=== PATIENT | male | born 1975 | race Two or more races ===

== ENCOUNTER → 2021-06-21 06:23 | Outpatient (CLI) | payer OTHER | END | disposition home or self-care (01) | LOC: LAB 06:23 | PROVIDERS: ATTEND Internal Medicine | DX: Z03.818 Encounter for observation for suspected exposure to other biological agents ruled out (principal) ==

== ENCOUNTER 2021-11-01 07:21 | Outpatient (CLI) | payer OTHER | END 2021-11-01 10:50 | disposition home or self-care (01) | LOC: LAB 07:21 | PROVIDERS: ATTEND Emergency Medicine Pediatric Emergency Medicine | DX: Z03.818 Encounter for observation for suspected exposure to other biological agents ruled out (principal) ==

== ENCOUNTER 2021-11-11 09:04 | Outpatient (CLI) | payer OTHER | END 2021-11-11 09:16 | disposition home or self-care (01) | LOC: LAB 09:04 | DX: Z11.52 Encounter for screening for COVID-19 (principal); Z20.822 Contact with and (suspected) exposure to COVID-19 ==

== ENCOUNTER 2022-10-18 01:26 | Inpatient (IN) | payer OTHER ==
[~2022-10-18] VITALS: Ht 177.8 cm; Wt 81.6 kg
== END 2022-10-20 16:58 | disposition home or self-care (01) | DRG 343 ==
LOC: ER 01:26 → SURG 10:09 → SEC-K 10:09 → SURG 12:39
PROVIDERS: Specialist; ADMIT Internal Medicine; ATTEND Internal Medicine
PROC: BW20YZZ Computerized Tomography (CT Scan) of Abdomen using Other Contrast (ICD-10-PCS; 2022-10-18)
PROC: BW21YZZ Computerized Tomography (CT Scan) of Abdomen and Pelvis using Other Contrast (ICD-10-PCS; 2022-10-18)
PROC: 0DTJ4ZZ Resection of Appendix, Percutaneous Endoscopic Approach (ICD-10-PCS; principal; 2022-10-19 13:30)
DX: K35.80 Unspecified acute appendicitis (principal); Z20.822 Contact with and (suspected) exposure to COVID-19